=== PATIENT | male | born 2000 | race Caucasian/White ===

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

== ENCOUNTER 2021-02-14 02:51 | Emergency (ER) | payer BC ==
[~2021-02-14] VITALS: Ht 177.8 cm; Wt 88.6 kg
[2021-02-14 04:11] LABS: BASO # 0.1 10^3/uL (0.0-0.2); BASO % 1.4 % (0.0-1.0); EOS # 0.1 10^3/uL (0.0-0.5); EOS % 0.8 % (0.0-3.0); HEMATOCRIT 45.2 % (42.0-52.0); HEMOGLOBIN 15.5 g/dl (13.5-17.5); LYMPH # 2.2 10^3/uL (1.5-5.0); LYMPH % 30.2 % (24.0-44.0); MEAN CORPUSCULAR HEMOGLOBIN 30.9 pg (27.0-33.0); MEAN CORPUSCULAR HGB CONC 34.3 g/dl (32.0-36.5); MEAN CORPUSCULAR VOLUME 90.2 fl (80.0-96.0); MONO # 0.7 10^3/uL (0.0-0.8); MONO % 9.4 % (2.0-8.0); NEUTROPHILS # 4.2 10^3/uL (1.5-8.5); NEUTROPHILS % 57.9 % (36.0-66.0); PLATELET COUNT, AUTOMATED 307 10^3/uL (150-450); RED BLOOD COUNT 5.01 10^6/uL (4.30-6.10); WHITE BLOOD COUNT 7.2 10^3/uL (4.0-10.0)
[2021-02-14 04:46] LABS: ACETAMINOPHEN LEVEL < 2.0 UG/ML (10.0-30.0); ALBUMIN 4.5 GM/DL (3.2-5.2); ALT/SGPT 28 U/L (12-78); BILIRUBIN,DIRECT 0.1 MG/DL (0.0-0.2); BILIRUBIN,TOTAL 0.3 MG/DL (0.2-1.0); BLOOD UREA NITROGEN 13 MG/DL (7-18); CALCIUM LEVEL 8.8 MG/DL (8.5-10.1); CARBON DIOXIDE LEVEL 23 MEQ/L (21-32); CHLORIDE LEVEL 106 MEQ/L (98-107); CPK CREATINE PHOSPHOKINASE 266 U/L (39-308); ETHYL ALCOHOL (ETHANOL) 0.275 % (0.000-0.010); GLUCOSE, FASTING 110 MG/DL (70-100); POTASSIUM SERUM 3.6 MEQ/L (3.5-5.1); SALICYLATE LEVEL < 1.7 MG/DL (5.0-30.0); SODIUM LEVEL 140 MEQ/L (136-145); TOTAL PROTEIN 8.1 GM/DL (6.4-8.2)
--- NOTE | 2021-02-14 06:32 | ECGEPIP ---
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
[2021-02-14] MEDS ORDERED: MULTIVITAMIN -ADULT INJECTION 10 ML, THIAMINE INJection 100 MG, FOLIC ACID 1 MG in NS 1... IV ONE (07:00)
--- NOTE | 2021-02-14 07:58 | REPVR ---
PROCEDURE INFORMATION: Exam: CT Head Without Contrast Exam date and time: 02/14/2021 7:07 AM Age: 20 years old Clinical indication: Other: Vomiting; Additional info: Vomiting, headache TECHNIQUE: Imaging protocol: Computed tomography of the head without contrast. Radiation optimization: All CT scans at this facility use at least one of these dose optimization techniques: automated exposure control; mA and/or kV adjustment per patient size (includes targeted exams where dose is matched to clinical indication); or iterative reconstruction. COMPARISON: CT Head without contrast 03/16/2017 4:08 AM FINDINGS: Brain: Unremarkable. No evidence of intracranial hemorrhage or mass effect. Preservation of the plata-white matter differentiation. Cerebral ventricles: Unremarkable. No ventriculomegaly. Paranasal sinuses: Visualized sinuses are unremarkable. No fluid levels. Mastoid air cells: Visualized mastoid air cells are well aerated. Bones/joints: Unremarkable. No acute fracture. Soft tissues: Unremarkable. IMPRESSION: No acute intracranial abnormality. Electronically signed by: Roel Hays On 02/14/2021 07:58:24 AM
[2021-02-14 08:52] LABS: AMPHETAMINES LEVEL URINE NEGATIVE (NEGATIVE); BARBITURATES URINE NEGATIVE (NEGATIVE); BENZODIAZEPINES URINE NEGATIVE (NEGATIVE); CANNABINOIDS URINE NEGATIVE (NEGATIVE); COCAINE METABOLITE URINE NEGATIVE (NEGATIVE); METHADONE URINE NEGATIVE (NEGATIVE); OPIATES URINE NEGATIVE (NEGATIVE); PHENCYCLIDINE URINE NEGATIVE (NEGATIVE)
[2021-02-14 11:21] VITALS: BP 139/70
== END 2021-02-14 11:31 | disposition home or self-care (01) ==
LOC: M ED 02:51
DX: S09.90XA Unspecified injury of head, initial encounter (principal); F10.120 Alcohol abuse with intoxication, uncomplicated; F17.200 Nicotine dependence, unspecified, uncomplicated; Y92.9 Unspecified place or not applicable; Y93.9 Activity, unspecified; Y99.9 Unspecified external cause status
CPT/HCPCS: 70450; 80048; 80076; 80143; 80307; 82077; 82550; 84443; 85025; 93005; 93041; 94760; 96365; 99285; J3411

== ENCOUNTER 2022-08-04 02:39 | Emergency (ER) | payer BC, OTHER ==
[~2022-08-04] VITALS: Ht 182.9 cm; Wt 100.0 kg
[2022-08-04 02:44] VITALS: BP 165/87
[2022-08-04] MEDS ORDERED: LIDOCAINE 2% W/EPINEPHRINE 20ML VIAL **PRES FREE INJ ONE (06:10)
== END 2022-08-04 07:10 | disposition home or self-care (01) ==
LOC: M ED 02:39
DX: S01.111A Laceration without foreign body of right eyelid and periocular area, initial encounter (principal); F10.120 Alcohol abuse with intoxication, uncomplicated; Y04.0XXA Assault by unarmed brawl or fight, initial encounter

== ENCOUNTER → 2023-09-01 | Outpatient (CLI) | payer OTHER | LOC: M OUTALCOH 11:12 | PROVIDERS: ATTEND Psychiatry & Neurology Psychiatry | DX: Z53.9 Procedure and treatment not carried out, unspecified reason (principal) ==

== ENCOUNTER 2023-09-06 13:01 | Outpatient (RCR) | payer OTHER | END 2023-09-10 | LOC: M OUTALCOH 13:01 | PROVIDERS: ATTEND Psychiatry & Neurology Psychiatry | DX: F10.10 Alcohol abuse, uncomplicated (principal) ==

== ENCOUNTER → 2023-10-13 | Outpatient (REF) | payer OTHER ==
[2023-10-14 11:11] LABS: TESTOSTERONE FREE (DIRECT) 15.1 pg/mL (9.3-26.5)
== END ==
LOC: M LAB REF 10:29
PROVIDERS: ATTEND Nurse Practitioner Family
DX: R86.1 Abnormal level of hormones in specimens from male genital organs (principal)

== ENCOUNTER → 2024-04-19 | Outpatient (REF) | payer OTHER ==
[2024-04-19 13:59] LABS: FOLLICLE STIMULATING HORMONE 5.1 mIU/ML (1.4-18.1); LUTEINIZING HORMONE 3.1 mIU/ML (1.5-9.3); PERCENT SATURATION 22.7 % (19.7-50.0); PROLACTIN 14.15 NG/ML (2.1-17.7)
[2024-04-19 14:00] LABS: CORTISOL AM 10.2 UG/DL (4.3-22.4)
[2024-04-22 10:07] LABS: TRANSFERRIN 253 mg/dL (188-341)
== END ==
LOC: M LAB REF 12:40
PROVIDERS: ATTEND Nurse Practitioner Family
DX: R86.1 Abnormal level of hormones in specimens from male genital organs (principal); F90.9 Attention-deficit hyperactivity disorder, unspecified type; E66.3 Overweight

== ENCOUNTER → 2024-09-03 | Outpatient (REF) | payer OTHER | LOC: M LAB REF 13:22 | PROVIDERS: ATTEND Nurse Practitioner Family | DX: R53.83 Other fatigue (principal); R86.1 Abnormal level of hormones in specimens from male genital organs ==

== ENCOUNTER → 2025-04-28 | Outpatient (REF) | payer OTHER | LOC: M LAB REF 12:15 | PROVIDERS: ATTEND Nurse Practitioner Family | DX: R86.1 Abnormal level of hormones in specimens from male genital organs (principal) ==